=== PATIENT | female | born 1975 | race African-American/Black ===

== ENCOUNTER 2016-10-19 23:04 | Emergency (ER) | payer OTHER ==
[~2016-10-19 23:04] MED LIST: ALBUTEROL17 GM INH; BUSPAR15 M2 PO; CLINDAMYCIN TOPICAL TOP; DESYREL50 MG DOB; HYDROCORTISONE30 G2 EXT; NAPROSYN500 MG PO; PREDNISONE10 MG/DOSE PO; ZITHROMAX PO; ZOLOFT100 MG PO; [UNRECOGNIZED DRUG - OTHER]
== END 2016-10-19 23:24 | disposition home or self-care (01) ==
LOC: SED 23:04
DX: M25.562 Pain in left knee (principal); F41.9 Anxiety disorder, unspecified
CPT/HCPCS: 99282